=== PATIENT | female | born 1940 | race Caucasian/White ===

== ENCOUNTER 2016-11-08 13:52 | Emergency (ER) ==
[2016-11-08 13:59] VITALS: BP 112/63; TEMP 96.8; BMI 29.2
--- NOTE | 2016-11-08 14:49 | ED.PDOC ---
General ED Provider: Dr. WILL PIERRE JR Chief Complaint: Fall Stated Complaint: at [place]--exiting building and "did not see curb" and fell- -abrasion to rt elbow/knee-sl pain to rt wrist--did not strike head --no loc[ End ] Time Seen by Physician: 14:49 Mode of Arrival: Walk-In Information Source: Patient Exam Limitations: No limitations Primary Care Provider: MARKELL HALL Nursing and Triage Documentation Reviewed and Agree: No Review of Systems - Review Of Systems Constitutional: Reports: No symptoms Eyes: Reports: No symptoms Ears, Nose, Mouth, Throat: Reports: No symptoms Respiratory: Reports: No symptoms Cardiac: Reports: No symptoms GI: Reports: No symptoms : Reports: No symptoms Musculoskeletal: Reports: Joint pain, Joint swelling Skin: Reports: Bruising Neurological: Reports: No symptoms Endocrine: Reports: No symptoms Hematologic/Lymphatic: Reports: No symptoms All Other Systems: Other Past Medical History - Past Medical History Endocrine: Reports: None Cardiovascular: Reports: CAD, Hypertension Respiratory: Reports: None Hematological: Reports: None Gastrointestinal: Reports: None Genitourinary: Reports: None Neuro/Psych: Reports: None Musculoskeletal: Reports: None Cancer: Reports: None Last Menstrual Period: hysterectomy Other Pertinent Past Medical History: back surg--neck surg--gallbladder--appy-- hysterectomy-- - Surgical History General Surgical History: Reports: Hysterectomy, Appendectomy, Cholecystectomy, Orthopedic (neck surg), Back Surgery - Family History Family History: Reports: Unknown - Social History Smoking Status: Former smoker Hx Substance Use: No Alcohol Screening: None Physical Exam - Physical Exam Appearance: Well-appearing Pain Distress: Moderate Neck: Supple Respiratory: Airway patent Musculoskeletal: Normal strength, ROM intact, No calf tenderness Skin: Warm, Dry, Normal color Neurological: Sensation intact, Motor intact, Reflexes intact, Cranial nerves intact, Alert, Oriented Re-Evaluation - Re-Evaluation Time of Re-Evaluation: 15:45 Status: Unchanged (fracture states nause avomiting with hc, can take 1/2 percocet) Appearance: NAD Lungs: Clear Skin: Warm and Dry Neuro: Alert and Oriented X3 CV: RRR Critical Care Note - Critical Care Note Total Time (mins): 0 Course - Course Orders, Labs, Meds: Orders Category Date Time Status ED SPLINT APPLICATION .ONCE EMERGENCY 11/08/16 15:45 Active Tramadol HCl [Ultram] MEDS 11/08/16 15:32 Discontinued 50 mg PO ONCE STA WRIST, RIGHT 3 VIEWS Stat RADS 11/08/16 14:56 Completed Medications Discontinued Medications Generic Name Dose Route Start Last Admin Trade Name Freq PRN Reason Stop Dose Admin Tramadol HCl 50 mg 11/08/16 15:32 11/08/16 15:42 Ultram PO 11/08/16 15:33 Not Given ONCE STA Vital Signs: Temp Pulse Resp BP Pulse Ox 11/08/16 13:52 96.8 F L 58 L 20 112/63 95 Departure - Departure Time of Disposition: 15:30 Disposition: HOME SELF-CARE Discharge Problem: Fracture, triquetral bone, Falls Instructions: Wrist Fracture in Adults (ED) Condition: Good Pt referred to PMD for follow-up: Yes Additional Instructions: follow up with PMD call today for orthopedic referral "TRIQUETRAL FRACTURE" ULTRAM for pain one or two four times a day no refills Prescriptions: Tramadol HCl [Ultram] 50 mg PO Q6H PRN #14 tablet PRN Reason: PAIN Allergies/Adverse Reactions: Allergies acetaminophen [From Lortab] Adverse Reaction (Verified 11/08/16 14:00) codeine Adverse Reaction (Verified 11/08/16 14:00) diazepam [From Valium] Adverse Reaction (Verified 11/08/16 14:00) erythromycin base [Erythromycin Base] Adverse Reaction (Verified 11/08/16 14:00) hydrocodone bitartrate [From Lortab] Adverse Reaction (Verified 11/08/16 14:00) Penicillins Adverse Reaction (Verified 11/08/16 14:00) Sulfa (Sulfonamide Antibiotics) Adverse Reaction (Verified 11/08/16 14:00) Home Medications: Ambulatory Orders Aspirin [Aspirin Chewable] 81 mg PO DAILY 01/09/13 Clonazepam [Klonopin] 0.5 mg PO QID 01/09/13 Dicyclomine HCl [Bentyl] 10 mg PO QID PRN 01/09/13 Etodolac 500 mg PO BID 01/09/13 Multivit-Min/FA/Lutein/Zeaxant [Icaps Mv Tablet] 1 each PO DAILY 01/09/13 Multivitamin 1 cap PO DAILY 01/09/13 [place]-3 Fatty Acids/Fish Oil [Fish Oil 1,000 mg Capsule] 2 each PO DAILY Pantoprazole Sodium [Protonix] 40 mg PO BIDAC 01/09/13 Clopidogrel Bisulfate [Plavix] 75 mg PO DAILY 11/08/16 Ezetimibe [Zetia] 10 mg PO DAILY 11/08/16 Tramadol HCl [Ultram] 50 mg PO Q6H PRN #14 tablet 11/08/16
--- NOTE | 2016-11-08 15:23 | DI ---
EXAM: Radiographs, right wrist HISTORY: Right scaphoid pain. Right second and third metacarpal pain. COMPARISON: 06/15/2009. TECHNIQUE: Three views. FINDINGS: Bone mineralization is normal. There is an angular ossific fragment seen along the dorsa l aspect of the carpal bones on the lateral view. Benign cyst noted in the scaphoid. Mild osteoarthr itic changes are present. No localized soft tissue abnormality identified. IMPRESSION: Age indeterminate triquetral fracture.
[2016-11-08] MEDS ORDERED: ULTRAM PO STA (15:32)
== END 2016-11-08 15:57 | disposition home or self-care (01) ==
LOC: ED 13:52
DX: S62.111A Displaced fracture of triquetrum [cuneiform] bone, right wrist, initial encounter for closed fracture (principal); S50.311A Abrasion of right elbow, initial encounter; S80.211A Abrasion, right knee, initial encounter; W01.0XXA Fall on same level from slipping, tripping and stumbling without subsequent striking against object, initial encounter
CPT/HCPCS: 99283

== ENCOUNTER 2018-01-09 15:45 | Emergency (ER) | payer OTHER ==
[2018-01-09 15:55] VITALS: BP 188/71; TEMP 97; BMI 28.8
--- NOTE | 2018-01-09 16:28 | ED.PDOC ---
General ED Provider: Dr. WANDA AARON Chief Complaint: Hand Pain/Injury Stated Complaint: Wrist pain, numbness and tingling. States she exercises daily , doing push outs against a counter top and believed she did too may reps a tonce(85-90) Left side not symptomatic. Time Seen by Physician: 16:20 Mode of Arrival: Walk-In Information Source: Patient Exam Limitations: No limitations Primary Care Provider: MARKELL HALL Nursing and Triage Documentation Reviewed and Agree: Yes Does patient meet sepsis criteria?: No If yes, has appropriate treatment been initiated?: Yes System Inflammatory Response Syndrome: Not Applicable Sepsis Protocol: For patient's 13 years and over: Temp is 96.8 and below OR 101 and greater Pulse >90 BPM Resp >20/minute Acutely Altered Mental Status Are patient's symptoms suggestive of a new infection, such as: -Pneumonia -Skin, Soft Tissue -Endocarditis -UTI -Bone, Joint Infection -Implantable Device -Acute Abdominal Infection -Wound Infection -Meningitis -Blood Stream Catheter Infection -Unknown Musculoskeletal Complaint Exam - Hand/Wrist Complaint/Exam Location of Pain: Reports: Right Mechanism of Injury: Reports: Other Onset/Duration: yesterday AM Symptoms Are: Still present Onset of Pain: Reports: Immediate Initial Severity: Moderate Current Severity: Moderate Location: Reports: Discrete Character: Reports: Aching, Stiffness Alleviating: Reports: OTC meds (reduces discomfort) Aggravating: Reports: Movement Associated Signs and Symptoms: Reports: Swelling, Numbness, Tingling. Denies: Redness, Bruising, Fever, Weakness Related History: Denies: Similar episode Dominant Hand: Right Related Surgical History: Reports: None Hand/Wrist Findings: Present: Swelling Differential Diagnoses: Carpal Tunnel Syndrome, Contusion, Tendonitis, Tenosynovitis Review of Systems - Review Of Systems Constitutional: Reports: No symptoms Eyes: Reports: No symptoms Ears, Nose, Mouth, Throat: Reports: No symptoms Respiratory: Reports: No symptoms Cardiac: Reports: No symptoms GI: Reports: No symptoms : Reports: No symptoms Musculoskeletal: Reports: No symptoms Skin: Reports: No symptoms Neurological: Reports: No symptoms Endocrine: Reports: No symptoms Hematologic/Lymphatic: Reports: No symptoms All Other Systems: Reviewed and Negative Past Medical History - Past Medical History Endocrine: Reports: None Cardiovascular: Reports: CAD, Hypertension Respiratory: Reports: None Hematological: Reports: None Gastrointestinal: Reports: None Genitourinary: Reports: None Neuro/Psych: Reports: None Musculoskeletal: Reports: None Cancer: Reports: None Last Menstrual Period: NA Other Pertinent Past Medical History: back surg--neck surg--gallbladder--appy-- hysterectomy-- - Surgical History General Surgical History: Reports: Hysterectomy, Appendectomy, Cholecystectomy, Orthopedic (neck surg), Back Surgery - Family History Family History: Reports: Unknown - Social History Smoking Status: Former smoker Hx Substance Use: No Alcohol Screening: None - Immunizations Tetanus Shot up to Date: Yes Physical Exam - Physical Exam Appearance: Well-appearing, No pain distress, Well-nourished Eyes: LILI, EOMI, Conjunctiva clear ENT: Ears normal, Nose normal, Oropharynx normal Respiratory: Airway patent, Breath sounds clear, Breath sounds equal, Respirations nonlabored Cardiovascular: RRR, Pulses normal, No rub, No murmur GI/: Soft, Nontender, No masses, Bowel sounds normal, No Organomegaly Musculoskeletal: Normal strength, ROM intact, No edema, No calf tenderness, Edema (rt wrist volar aspect) Skin: Warm, Dry, Normal color Neurological: Sensation intact, Motor intact, Reflexes intact, Cranial nerves intact, Alert, Oriented Psychiatric: Affect appropriate, Mood appropriate Procedures - Cerumen Removal Location: Right ear Instrument Used: Otoscope, Forceps Irrigation Used: Yes Results: Wax Pain Successfully Reduced: Yes Critical Care Note - Critical Care Note Total Time (mins): 0 Course - Course Orders, Labs, Meds: Orders Category Date Time Status CT WRIST RIGHT W/O CONTRAST Stat RADS 01/09/18 16:20 Completed Vital Signs: Temp Pulse Resp BP Pulse Ox 01/09/18 15:46 97 F L 63 16 188/71 H 98 Departure - Departure Time of Disposition: 18:00 Disposition: HOME SELF-CARE Discharge Problem: Strain of wrist, right, Arthritis of wrist, right, degenerative, Ceruminosis Instructions: Wrist Injury (ED), Cerumen Impaction (ED), Osteoarthritis (ED) Condition: Good Pt referred to PMD for follow-up: Yes (1 week) IPMP verified?: No Additional Instructions: Wear wrist splint May remove when bathing May loosen to apply ice periodically Analgesics for pain as directed See PCP in 4-7 days Allergies/Adverse Reactions: Allergies acetaminophen [From Lortab] Adverse Reaction (Verified 11/08/16 14:00) codeine Adverse Reaction (Verified 11/08/16 14:00) diazepam [From Valium] Adverse Reaction (Verified 11/08/16 14:00) erythromycin base [Erythromycin Base] Adverse Reaction (Verified 11/08/16 14:00) hydrocodone bitartrate [From Lortab] Adverse Reaction (Verified 11/08/16 14:00) Penicillins Adverse Reaction (Verified 11/08/16 14:00) Sulfa (Sulfonamide Antibiotics) Adverse Reaction (Verified 11/08/16 14:00) Home Medications: Ambulatory Orders Aspirin [Aspirin Chewable] 81 mg PO DAILY 01/09/13 Clonazepam [Klonopin] 0.5 mg PO QID 01/09/13 Dicyclomine HCl [Bentyl] 10 mg PO QID PRN 01/09/13 Etodolac 500 mg PO BID 01/09/13 Multivit-Min/FA/Lutein/Zeaxant [Icaps Mv Tablet] 1 each PO DAILY 01/09/13 Multivitamin 1 cap PO DAILY 01/09/13 [place]-3 Fatty Acids/Fish Oil [Fish Oil 1,000 mg Capsule] 2 each PO DAILY Pantoprazole Sodium [Protonix] 40 mg PO BIDAC 01/09/13 Clopidogrel Bisulfate [Plavix] 75 mg PO DAILY 11/08/16 Ezetimibe [Zetia] 10 mg PO DAILY 11/08/16 Tramadol HCl [Ultram] 50 mg PO Q6H PRN #14 tablet 11/08/16 Disposition Discussed With: Patient
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
== END 2018-01-09 18:15 | disposition home or self-care (01) ==
LOC: ED 15:45
DX: S66.911A Strain of unspecified muscle, fascia and tendon at wrist and hand level, right hand, initial encounter (principal); M19.031 Primary osteoarthritis, right wrist; H61.21 Impacted cerumen, right ear; X50.1XXA Overexertion from prolonged static or awkward postures, initial encounter
CPT/HCPCS: 99283